=== PATIENT | female | born 1960 | race Caucasian/White ===

== ENCOUNTER 2017-09-08 00:39 | Day surgery (SDC) | payer OTHER ==
[~2017-09-08] VITALS: Ht 168.9 cm; Wt 65.8 kg
[~2017-09-08 00:39] MED LIST: ACET-1966 PO; DIPH-740 PO; FAMO40TA8 PO; GOLYTE PO; NAPR-1043 PO; NAPR1TAB10 PO; NAPR220C12 PO; PRED20TA6 PO; PSEU-287 PO; ZOLP-350 PO
[2017-09-08 06:10] VITALS: BP 129/84
[2017-09-08] MEDS ORDERED: LIDOCAINE/SOD BICARB 8.4% SYR ID ONE (06:30)
[2017-09-08] MEDS ORDERED: MIDAZOLAM 2 MG/2 ML VIAL IVP PRN (06:30)
[2017-09-08] MEDS ORDERED: NORMOSOL R SOLN(*) 1000 ML BAG 1,000 ML IV PRN (06:30)
[2017-09-08 07:46] VITALS: BP 95/67
--- NOTE | 2017-09-08 07:51 | Short(Outpt) Discharge Summary ---
Discharge Summary Reason for Hosp/Final Diag: (1) History of colon polyps Status: Chronic Hospital Course & Plan: Colonoscopy completed without problems. Departure Discharge to: Home, Self Care Discharge Instructions Home Meds Active Scripts Peg/Electrolytes (GOLYTELY SOLUTION) 4,000 Ml Soln, 1 GAL PO ONCE, #1 GAL 0 Refills Prov:JOSE DAY MD 09/06/17 Reported Medications Naproxen Sodium (ALEVE) 220 Mg Tablet, 220 MG PO PRN, TAB 09/01/17 Discontinued Reported Medications Acetaminophen (TYLENOL) 325 Mg Tablet, 325 MG PO PRN, TAB 10/09/16 Naproxen Sodium (ALEVE) 220 Mg Capsule, 220 MG PO PRN, CAPSULE 10/09/16 Diet: Regular Activity: As Tolerated Special Instructions: Your colonoscopy was completed without any problems and your prep was excellent (Good Job!!). I didn't find any polyps, cancers, or other abnormalities. Your colon looked great! I recommend that you have another colonoscopy in 5 years due to your previous history of a colon polyp. JOSE DAY MD Sep 08, 2017 07:51
[2017-09-08 07:58] VITALS: BP 95/57
[2017-09-08 08:14] VITALS: BP 105/74
[2017-09-08 08:16] VITALS: BP 108/79
[2017-09-08 08:17] VITALS: BP 97/81
[2017-09-08] MEDS ORDERED: PROPOFOL(*)1000 MG/100 ML VIAL 100 ML ONE (12:35)
== END 2017-09-08 08:45 | disposition home or self-care (01) ==
LOC: OR 00:39
PROVIDERS: ATTEND Surgery
DX: Z12.11 Encounter for screening for malignant neoplasm of colon (principal); Z86.010 Personal history of colon polyps
CPT/HCPCS: 00812; 45378; J2704

== ENCOUNTER → 2018-05-27 | Outpatient (CLI) | payer OTHER ==
[~2018-05-27] MED LIST changes: -PSEU-287 PO; +PSEU120T69 PO
--- NOTE | 2018-05-27 15:59 | RADIOLOGY IMAGING REPORT ---
FACILITY: [facility] PATIENT NAME: FELISHA MELENDREZ : [id number] MR: [id number] V: [id number] EXAM DATE: [id number] ORDERING PHYSICIAN: KENDALL ARCHER TECHNOLOGIST: Tara Gonzalez PROCEDURE:BILATERAL DIGITAL SCREENING MAMMOGRAM WITH CAD ASSISTED INTERPRETATION & 3D TOMOSYNTHESIS COMPARISON:Prior mammograms 05/26/2017, 05/18/2016. INDICATIONS:SCREENING, family history of breast carcinoma in maternal and paternal grandmothers. TISSUE DENSITY: Heterogeneously dense, breast tissue can obscure small masses. FINDINGS: There is no mammographic finding suspicious for malignancy, no significant change compared to prior mammograms. DIAGNOSTIC CATEGORY 1--NEGATIVE. RECOMMENDATIONS: ANNUAL BILATERAL SCREENING MAMMOGRAM AND CLINICAL EVALUATION. IMPRESSION: BIRADS 1: Negative. Dictated by: Yolette Hardwick M.D. on 05/27/2018 at 15:37 Transcribed by: FAIZA on 05/27/2018 at 15:47 Approved by: Yolette Hardwick M.D. on 05/27/2018 at 15:59 [facility]
== END ==
LOC: MAMO 04:41
PROVIDERS: ATTEND Nurse Practitioner Family
DX: Z12.31 Encounter for screening mammogram for malignant neoplasm of breast (principal)
CPT/HCPCS: 77063; 77067